=== PATIENT | female | born 1980 | race American Indian/Alaskan Native ===

== ENCOUNTER 2018-07-09 12:06 | Emergency (ER) | payer SELFPAY ==
--- NOTE | 2018-07-09 12:11 | Emergency Department Report ---
Blank Doc - Documentation Documentation: This is a 38-year-old female that presents with left calf pain and swelling. Denies any trauma. This initial assessment/diagnostic orders/clinical plan/treatment(s) is/are subject to change based on patient's health status, clinical progression and re- assessment by fellow clinical providers in the ED. Further treatment and workup at subsequent clinical providers discretion. Patient/guardians urged not to elope from the ED as their condition may be serious if not clinically assessed and managed. Initial orders include: 1- Patient sent to [facility] for further evaluation and treatment 2- Doppler
--- NOTE | 2018-07-09 13:11 | Emergency Department Report ---
ED General Adult HPI - General Chief complaint: Extremity Problem,Nontraumatic Stated complaint: ABNORMAL LABS Time Seen by Provider: 07/09/18 12:10 Source: patient Mode of arrival: Ambulatory Limitations: No Limitations - History of Present Illness Initial comments: Mrs. posadas is a pleasant 38-year-old obese -[place] female comes to the ER today after being seen by another outpatient provider for leg swelling. They have sent her here for ultrasound Doppler studies to rule out DVT. Patient has a past medical history of peripartum cardiomyopathy. After having her child numerous years ago she had heart failure but no longer follows with cardiology. Patient denies any previous history of blood clots in her legs or pulmonary embolism. She is on no blood thinners. Patient does have dependent bilateral lower extremity edema. She also reports at times that she is short of breath. Patient also reports a history of a thyroidectomy. She has not on levothyroxine. She states that she has poor health care to due to lack of insurance. Patient states that she had a complete thyroidectomy. Patient's voice is hoarse. I asked her if she had nerve damage with her thyroidectomy and she stated that she did that she has had the problem with her voice since that time. Ultrasounds of the bilateral lower extremities have been ordered from triage. However, based on the patient's presentation additional tests have been ordered to ensure that the patient is not suffering with congestive heart failure. - Related Data Allergies Allergy/AdvReac Type Severity Reaction Status Date / Time No Known Allergies Allergy Unverified 07/09/18 12:10 ED Review of Systems ROS: Stated complaint: ABNORMAL LABS Other details as noted in HPI Comment: All other systems reviewed and negative ED Past Medical Hx - Past Medical History Previous Medical History?: Yes Hx Hypertension: No Hx CVA: No Hx Congestive Heart Failure: Yes Hx Diabetes: No Hx Deep Vein Thrombosis: No Hx Arthritis: No Hx Seizures: No Hx Asthma: No - Surgical History Past Surgical History?: Yes Additional Surgical History: Thyroidectomy - Social History Smoking Status: Never Smoker Substance Use Type: None ED Physical Exam - General Limitations: No Limitations General appearance: anxious - Head Head exam: Present: normocephalic - Eye Eye exam: Present: PERRL - ENT ENT exam: Present: mucous membranes moist - Neck Neck exam: Present: other (hoarse) - Respiratory Respiratory exam: Present: normal lung sounds bilaterally - Cardiovascular Cardiovascular Exam: Present: regular rate - GI/Abdominal GI/Abdominal exam: Present: soft, normal bowel sounds, other (obese) - Rectal Rectal exam: Present: deferred - Extremities Exam Extremities exam: Present: normal capillary refill, pedal edema (ble edema), other (neg homans bilateral). Absent: calf tenderness - Back Exam Back exam: Present: normal inspection - Neurological Exam Neurological exam: Present: alert, oriented X3, CN II-XII intact, normal gait - Psychiatric Psychiatric exam: Present: normal affect, normal mood - Skin Skin exam: Present: warm, dry ED Course Vital Signs 07/09/18 07/09/18 07/09/18 12:11 14:32 14:45 Temperature 98.5 F Pulse Rate 71 58 L Respiratory 16 19 Rate Blood Pressure 161/94 O2 Sat by Pulse 100 100 97 Oximetry 07/09/18 07/09/18 07/09/18 15:01 15:15 15:30 Temperature Pulse Rate 58 L 55 L 56 L Respiratory 18 Rate Blood Pressure 152/95 152/95 131/97 O2 Sat by Pulse 99 100 100 Oximetry 07/09/18 15:45 Temperature Pulse Rate 56 L Respiratory 20 Rate Blood Pressure 144/94 O2 Sat by Pulse 100 Oximetry ED Medical Decision Making - Lab Data Result diagrams: 07/09/18 15:00 07/09/18 15:00 - EKG Data -: EKG Interpreted by Wa Rate: normal - EKG Data Interpretation: no acute changes - Radiology Data Radiology results: report reviewed, image reviewed - Medical Decision Making ultrasound negative xray enlarged heart without pulm edema labs noted bnp normal vss will dc home with referral to cardiology Labs 07/09/18 07/09/18 15:00 15:00 WBC 5.6 RBC 4.29 Hgb 11.7 Hct 35.4 MCV 83 MCH 27 L MCHC 33 RDW 19.3 H Plt Count 192 Sodium 139 Potassium 3.4 L Chloride 98.2 Carbon Dioxide 30 Anion Gap 14 BUN 11 Creatinine 1.5 H Estimated GFR 47 BUN/Creatinine Ratio 7 Glucose 86 Calcium 9.3 Total Bilirubin 0.50 AST 60 H ALT 21 Alkaline Phosphatase 49 Troponin T 0.022 NT-Pro-B Natriuret Pep 24.91 Total Protein 7.6 Albumin 4.6 Albumin/Globulin Ratio 1.5 Vital Signs 07/09/18 07/09/18 07/09/18 12:11 14:32 14:45 Temperature 98.5 F Pulse Rate 71 58 L Respiratory 16 19 Rate Blood Pressure 161/94 O2 Sat by Pulse 100 100 97 Oximetry 07/09/18 07/09/18 07/09/18 15:01 15:15 15:30 Temperature Pulse Rate 58 L 55 L 56 L Respiratory 18 Rate Blood Pressure 152/95 152/95 131/97 O2 Sat by Pulse 99 100 100 Oximetry 07/09/18 15:45 Temperature Pulse Rate 56 L Respiratory 20 Rate Blood Pressure 144/94 O2 Sat by Pulse 100 Oximetry Had a long discussion with the patient and family member about her overall medical health including the findings of today's test. Although the BNP is normal and there is no pulmonary edema on chest x-ray and concerned with this vanita guzman's underlying peripartum cardiomyopathy. I've explained to her that she also has some renal insufficiency with a creatinine of 1.5. I cannot put her on Lasix or any other diuretic for the pulmonary edema or this will make this renal insufficiency potentially worse. I've explained all this to the patient and refer her to Dr. Verdugo. Hopefully Dr. Verdugo as supervisor vendor quality can help her with her post cardiomyopathy care and appropriate referrals to nephrology if warranted. This patient is 38 but looks and acts much older than stated age at the gets important that she get access into the health care system and follow with the same provider routinely so they can monitor her cardiac function. Patient has been given copies of her labs to take to Dr. Verdugo. Patient has been educated on how to minimize her peripheral edema. We also discussed her thyroidectomy and her lack of thyroid hormone and how this can have effects on the heart as well as her her overall wellness given its length to other hormones. She may also need to see endocrinology. I explained her her #1 priority though should be having a detailed heart evaluation. Critical care attestation.: If time is entered above; I have spent that time in minutes in the direct care of this critically ill patient, excluding procedure time. ED Disposition Clinical Impression: Dependent edema, Renal insufficiency, Status post thyroidectomy, History of cardiomyopathy Disposition: TO HOME OR SELFCARE Is pt being admited?: No Does the pt Need Aspirin: No Condition: Stable Instructions: Leg Edema (ED) Additional Instructions: DIET TOLERATED- LOW SODIUM FOLLOW UP PCP WITHIN 48 HOURS TO ENSURE YOU ARE GETTING BETTER REFERRAL BELOW ACTIVITY TOLERATED RETURN TO THE ER FOR WORSENING SYMPTOMS NOT RELIEVED BY YOUR MEDICATIONS. FOLLOW UP WITH HEART DOCTOR REFERRAL BELOW YOU WILL NEED ADDITIONAL CARDIAC TESTS LET YOUR DOCTORS KNOW YOU WERE SEEN HERE AND THEY CAN CALL FOR ALL OF YOUR R ESULTS ULTRASOUND NO BLOOD CLOT XRAY ENLARGED HEART KIDNEY FUNCTION SLIGHTLY DECREASED KEEP YOUR LEGS ELEVATED MUCH YOU CAN THIS WILL DECREASE SWELLING Referrals: FARHAT JETER MD [Primary Care Provider] - 3-5 Days ELOISE VERDUGO MD [Staff Physician] - 3-5 Days Forms: Work/School Release Form(ED) Time of Disposition: 17:40
--- NOTE | 2018-07-09 14:33 | Vascular Lab Report ---
PROCEDURE: VL VENOUS DUPLEX LE BILAT TECHNIQUE: Grayscale, color flow and spectral waveform images were obtained of bilateral lower extre mities. HISTORY: SWELLING COMPARISON: None FINDINGS: Calf veins could not be visualized due to depth and edema. There is no deep venous thrombosis seen in the left or right lower extremity from common femoral vein s through the popliteal veins. Flow is demonstrated by color flow and spectral waveform imaging. Ther e is appropriate wall compression and augmentation. IMPRESSION: There is no evidence for DVT in visualized either right or left lower extremity. Calf veins not visua lized. This document is electronically signed by Nicole Osorio MD., Jul 09 2018 02:30:42 PM ET
[2018-07-09 15:28] LABS: Hematocrit 35.4 % (30.3-42.9); Hemoglobin 11.7 gm/dl (10.1-14.3); Mean Corpuscular HGB Conc 33 % (30-34); Mean Corpuscular Volume 83 fl (79-97); Platelet Count 192 K/mm3 (140-440); Red Blood Count 4.29 M/mm3 (3.65-5.03); Red Cell Distribution Width 19.3 % (13.2-15.2)
[2018-07-09 15:52] LABS: Albumin 4.6 g/dL (3.9-5); Calcium 9.3 mg/dL (8.4-10.2)
[2018-07-09 16:56] VITALS: BP 144/94
--- NOTE | 2018-07-09 17:30 | XRay Report ---
PROCEDURE: Chest. TECHNIQUE: PA and lateral views. HISTORY: Shortness of breath. COMPARISONS: None. FINDINGS: The cardiac silhouette is markedly enlarged. Pulmonary vascularity is within normal limits. The right lung is clear. There is some linear opacity in the left midlung. This may represent some subsegmenta l atelectasis or scarring. The left lung is otherwise clear. There are no pleural effusions. The soft tissues and regional skeleton are unremarkable. IMPRESSION: Cardiomegaly. Left mid lung scarring versus subsegmental atelectasis. This document is electronically signed by Ankit Sahu MD., Jul 09 2018 05:28:15 PM ET
== END 2018-07-09 18:40 | disposition home or self-care (01) ==
LOC: ED 12:06
DX: N28.9 Disorder of kidney and ureter, unspecified (principal); E89.0 Postprocedural hypothyroidism; R60.9 Edema, unspecified; I50.9 Heart failure, unspecified
CPT/HCPCS: 36415; 71046; 80053; 83880; 84484; 85027; 93005; 93010; 93970; 99284